=== PATIENT | male | born 2000 ===

== ENCOUNTER 2025-04-24 07:23 | Outpatient (CLI) | payer OTHER, SELFPAY ==
--- NOTE | ~2025-04-24 | US_ITS ---
US abdomen limited INDICATION: Hepatic steatosis PROCEDURE: Realtime right upper abdominal ultrasound. COMPARISON: No prior studies for comparison. FINDINGS: The pancreas is normal without focal mass or pancreatic ductal dilation. Liver echotexture is diffusely increased, consistent with fatty infiltration. There is normal directional flow in the portal vein. The gallbladder is normal without stones, gallbladder wall thickening or pericholecystic fluid. Comm on bile duct measures 3 mm. No sonographic Palomino's sign. IMPRESSION: 1: Fatty infiltration of the liver. Reviewed, dictated and finalized at location A.
--- OUTSIDE RECORDS SUMMARY | 2025-04-24 07:28 | XMS_ITS | Encounter Summary ---
Author Organization [facility] Address [address] [place] [address] Phone Care Team Providers Care Core Composer Machine Tender Name Role Phone Arnav Long MD Primary Care Provider [phone] Encounter Details Date Type Department Care Team (Late st Contact Info) Description 03/28/2021 Orders Only [facility] GA[facility] Scanning, Provider Social History Tobacco Use Types Packs/Day Years Used Date Smoking Tobacco: Never Sex and Gender Information Value Date Recorded Sex Assigned at Not on file 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 Gender Identity Not on file Sexual Orientation Not on file documented as of this encounter Plan of Treatment Not on file documented as of this encounter Procedures Procedure Name Priority Date/Time Associated Diagnosis Comments SCAN - LABS 03/28/2021 documented in this encounter Results * SCAN - LABS (03/28/2021) us Provider Scanning Final Result documented in this encounter Visit Diagnoses Not on filedocumented in this encounter Care Teams Core Composer Machine Tender Relationship Specialty Start Date End Date Arnav Long MD PCP - General Family Medicine 08/23/18 documented as of this encounter
--- OUTSIDE RECORDS SUMMARY | 2025-04-24 07:28 | XMS_ITS | Clinical Summary ---
Author Organization 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 Gender Identity Not on file Sexual Orientation Not on file Plan of Treatment Health Maintenance Due Date Last Done Comments Hepatitis C Virus (HCV) Screening 1998 Human Papillomavirus (HPV) Immunization (1 - Male 3-dose series) 2013 SARS-COV-2 Immunization ( season) 2024 Influenza Immunization (#1) 2025 Respiratory Syncytial Virus (RSV) Immunization (Adult) (1 - 1-dose 75+ series) 2073 Pneumococcal Immunization Combined Aged Out 05/17/2000 No longer eligible based on patient's age to complete this topic DTaP/Tdap/Td Immunization Discontinued 2009, 04/29/2003, 11/03/1999, Additional history exists TdaP Immunization Completed 04/07/2010 Meningococcal Immunization (ACWY) Completed 04/11/2015, 08/24/2014 Hepatitis B Immunization Completed 020, 07/21/2020, 01/27/1999, Additional history exists Rotavirus Immunization Aged Out No lo nger eligible based on patient's age to complete this topic Insurance [employer] on file
--- OUTSIDE RECORDS SUMMARY | 2025-04-24 07:28 | XMS_ITS | Encounter Summary ---
Author Organization [facility] Address [address] [place] [address] Care Team Providers Care Day Care Center Director Name Role Phone Bonnie Wade MD Primary Care Provider [phone] Reason for Visit * Reason Onset Date Comments Results 02/04/2016 Encounter Details Date Type Department Care Team (Late st Contact Info) Description 02/04/2016 Telephone [facility] Pediatrics - [address] [address] Greyson Foreman MD [address] [place] [address] [phone] Results Social History Tobacco Use Types Packs/Day Years Used Date Smoking Tobacco: Never Assessed Sex and Gender Information Value Date Recorded Sex Assigned at Not on file Legal Sex Male 10:38 AM CDT Gender Identity Not on file Sexual Orientation Not on file documented as of this encounter Functional Status * Is person deaf or have serious hearing difficulty? Answer Date of Assessment Author No 01/19/2016 3:29 PM CDT Waylon Esteves RN * Is person blind or have serious difficulty seeing? Answer Date of Assessment Author No 01/19/2016 3:29 PM KEMART Waylon Esteves RN * Does person have serious difficulty walking/climbing stairs? Answer Date of Assessment Author No 01/19/2016 3:29 PM KEMART Waylon Esteves RN * Does person have difficulty dressing/bathing? Answer Date of Assessment Author No 01/19/2016 3:29 PM KEMART Waylon Esteves RN * Does person have difficulty doing errands alone? Answer Date of Assessment Author No 01/19/2016 3:29 PM KEMART Waylon Esteves RN documented as of this encounter Mental Status * Does person have difficulty concentrating/remembering/making decisions? Answer Entry Date Author No 01/19/2016 3:29 PM CDT Waylon Esteves RN documented in this encounter Miscellaneous Notes * Telephone Encounter - Kathie Wiley - 02/12/2016 11:57 AM CDT Spoke with mom she is in agreement to FU visit 02/24/2016 @ 3:00pm. * Telephone Encounter - Greyson Foreman MD - 02/11/2016 4:28 PM CDT Though I do not have afternoon clinics, if there is an available opening I could see the patient on02/23 at 3:00PM. Keep us informed of progress. * Telephone Encounter - Kell Carrasquillo RN - 02/06/2016 3:56 PM CDT Spoke to both parents via speaker phone informing them of bx results. Reviewed fatty liver with parents in detail. Family would like to see Dr. Foreman in clinic after 1500 any day of the week. When do you want to see him? * Telephone Encounter - Greyson Foreman MD - 02/06/2016 3:36 PM CDT We have tried calling several times but have not been able to speak with the family. Please let them know that biopsy shows fatty liver disease. Diet and exercise can help. If possible please setup a telephone call / clinic visit where this can be discussed in greater length. Keep us informed of progress. * Telephone Encounter - Kathie Wiley - 02/05/2016 10:40 AM CDT Mom returning call. She is available around 4:30 pm after she is off work [phone]. Please leave a detailed message if possible on mom's voicemail. Dad is available around 2:45 pm [phone]. * Telephone Encounter - Phoebe Hooks - 02/05/2016 10:19 AM CDT Mom returning call. * Telephone Encounter - Greyson Foreman MD - 02/05/2016 10:02 AM CDT Called again. No answer. Left message. * Telephone Encounter - Kathie Wiley - 02/05/2016 9:03 AM CDT Dad returning missed call regarding Liver Bx results. Please call mom's cell phone [phone]. * Telephone Encounter - Greyson Foreman MD - 02/04/2016 11:36 AM CDT Called. No answer. No way to leave a message. * Telephone Encounter - Kathie Wiley - 02/04/2016 8:21 AM CDT Dad is requesting Liver Bx results. Please call mom with results. documented in this encounter Plan of Treatment Not on file documented as of this encounter Visit Diagnoses Not on filedocumented in this encounter Care Teams Day Care Center Director Relationship Specialty Start Date End Date Bonnie Wade MD [address] [place] [address] PCP - General Pediatrics 11/28/15 12/25/24 documented as of this encounter
--- OUTSIDE RECORDS SUMMARY | 2025-04-24 07:28 | XMS_ITS | Clinical Summary ---
Author Organization [facility] Address [address] [place] [address] Care Team Providers Care Assistant Women'S Tennis Coach Name Role Phone Unavailable Primary Care Provider Unavailabl e Source Comments [facility],non-owned Affiliates and Associated Physician Practices is amultiple site organization consisting of ambulatory clinics and hospital sitesin [place], [place], [place] and [place]. This disclosure is being madepursuant to the Care Everywhere program and may not contain all information available regarding this patient. Last updated 18.[facility] Allergies No known active allergies Medications * Be aware that medications may not be up to date on this document. Alwaysverify current medications with the patient. amphetamine-dex troamphetamine XR 24hr (ADDERALL XR) 20 MG capsule Take 40 mg by mouth every morning Active risperiDONE (RISPERDAL) 0.5 MG tablet Take 0.5 mg by mouth once daily Active Active Problems Problem Noted Date Diagnosed Date Elevated liver enzymes 01/19/2016 Social History Tobacco Use Types Packs/Day Years Used Date Smoking Tobacco: Never Alcohol Use Standard Drinks/Week Comments Not Asked 0 (1 standard drink = 0.6 oz pur e alcohol) Sex and Gender Information Value Date Recorded Sex Assigned at Not on file Legal Sex Male 10:38 AM CDT Gender Identity Not on file Sexual Orientation Not on file Last Filed Vital Signs Vital Sign Reading Time Taken Comments Blood Pressure 116/72 02/24/2016 3:10 PM CDT Pulse 93 01/19/2016 4:30 PM CDT Temperature 37 C (98.6 F) 01/19/2016 1:45 PM CDT Respiratory Rate 10 01/19/2016 4:30 PM CDT Oxygen Saturation 96% 01/19/2016 4:30 PM CDT Inhaled Oxygen Concentration - - Weight 71.5 kg (157 lb 10.1 oz) 02/24/2016 3:10 PM CDT Height 165.7 cm (5' 5.24) 02/24/2016 3:10 PM CD T Body Mass Index 26.04 02/24/2016 3:10 PM CDT Plan of Treatment Health Maintenance Due Date Last Done Comments HIV SCREENING 2013 HPV VACCINE (1 - Male 3-dose series) 2013 DTAP/TDAP/TD VACCINES (1 - Tdap) 2017 HEPATITIS B VACCINE (1 of 3 - 19+ 3-dose series) 2017 COVID-19 VACCINE (1 - 2023-2 5 season) 2024 DEPRESSION SCREENING 09/12/2024 INFLUENZA VACCINE (#1) 2025 ZOSTER VACCINE (1 of 2) 2048 HEPATITIS C SCREENING Completed 01/09/2016 HIB VACCINE Aged Out No longer eligi ble based on patient's age to complete this topic MENINGOCOCCAL (Group B) VACC INE SHARED DECISION-MAKING Aged Out No longer eligibl e based on patient's age to complete this topic MENINGOCOCCAL GROUPS A/C/Y/W VACCINE Aged Out No longer eligible b ased on patient's age to complete this topic PNEUMOCOCCAL VACCINE Aged Out No long er eligible based on patient's age to complete this topic Procedures Procedure Name Priority Date/Time Associated Diagnosis Comments HEPATITIS SCREEN ACUTE Routine 01/09/2016 9:40 AM CDT Liver disorder from Last 3 Months or Most Recently Relevant to Health Maintenance Results * HEPATITIS SCREEN ACUTE (01/09/2016 9:40 AM CDT) HAV Antibody IgM Non Reactive Non Reactive 01/09/2016 11:26 AM T [facility] HBsAg Non Reactive Non Reactive 01/09/2016 11:26 AM T [facility] HBc Antibody IgM Non Reactive Non Reactive 01/09/2016 11:26 AM [facility] HCV Antibody Screen Non Reactive Non Reactive 01/09/2016 11:26 AM [facility] HCV S/C Ratio 0.12 0.00 - 0.79 01/09/2016 11:26 AM [facility] Comment: Drlsiy-cr-xotzsj ratio (S/CO) <0.80: Non Reactive Blood BLOOD SPECIMEN / Unknown Lab Venipuncture / Unknown 01/09/2016 9:40 AM CDT 01/09/2016 10:34 AM CDT Narrative [facility] - 01/09/2016 11:26 AM CDT Non Reactive - Antibodies to Hepatitis C virus (HCV) were not detected, result does not exclude early acute HCV infection. us Greyson Foreman MD LAB - CHEMISTRY ORDERABLES Final Result [facility] [address] [place] [address] from Last 3 Months or Most Recently Relevant to Health Maintenance Insurance
--- OUTSIDE RECORDS SUMMARY | 2025-04-24 07:28 | XMS_ITS | Clinical Summary ---
Author Organization [facility] Address [address] [place] [address] Care Team Providers Care Community Service Coordinator Name Role Phone Arnav Long MD Primary Care Provider [phone] Allergies No known active allergies Medications VYVANSE 40 mg capsule TK 1 C PO QAM 0 11/17/2018 Active acetaminophen (TYLENOL) 325 mg tablet Take 1 tablet (325 mg total) by mouth as needed for pain Active ascorbic acid (VITAMIN C ORAL) Take by mouth Unsure med dosage qd Active Active Problems No known active problems Encounters Date Type Department Care Team Description 02/04/2025 Results Follow-Up [facility] [address] [place] [address] [address] [place] [address] [place] [phone] Chica Mcnulty MD Comprehensive metabolic panel, CBC with auto differential, Bilirubin, direct, Additional followed-up results: 3 02/04/2025 Results Follow-Up [facility] [address] [place] [address] 12th [place] [address] [place] [id number] Chica Mcnulty MD Liver Elastography w/o Imaging W/I&R -[facility] (All Locations) 01/31/2025 11:15 AM CDT Lab [facility] [address] [place] [phone] Hepatic steatosis 01/31/2025 9:30 AM CDT Procedure visit [facility] [address] 12th [place] [address] [place] [address] Hepatic steatosis 01/31/2025 9:00 AM CDT Office Visit [facility] [address] [facility] 12th [place] [address] [place] [address] Chica Mcnulty MD Hepatic steatosis (Primary Dx) from Last 3 Months Surgical History Surgery Date Site/Laterality Comments LIVER BIOPSY 02/14/16 - findings of hepatic steatosis Medical History Medical History Date Comments Autism Family History Medical History Relation Name Comments Cancer Maternal Grandfather Heart attack Maternal Grandfather Diabetes Maternal Grandmother Gestational diabetes Mother Relation Name Status Comments Maternal Grandfather Maternal Grandmother Mother Social History Tobacco Use Types Packs/Day Years Used Date Smoking Tobacco: Never Tobacco Cessation:Counseling Given: Not Answered Sex and Gender Information Value Date Recorded Sex Assigned at Not on file 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 Gender Identity Not on file Sexual Orientation Not on file Obstetrics History Last Filed Vital Signs Vital Sign Reading Time Taken Comments Blood Pressure 135/82 01/31/2025 9:13 AM CDT Pulse 96 01/31/2025 9:13 AM CDT Temperature 36.7 C (98.1 F) 01/31/2025 9:13 AM CDT Respiratory Rate - - Oxygen Saturation 96% 12/13/2022 8:31 AM CDT Inhaled Oxygen Concentration - - Weight 82 kg (180 lb 12.8 oz) 01/31/2025 9:13 AM CDT Height 170.2 cm (5' 7) 01/31/2025 9:13 AM CDT Body Mass Index 28.32 01/31/2025 9:13 AM CDT Plan of Treatment Health Maintenance Due Date Last Done Comments Depression Screening 1998 Hepatitis C Screening 1998 HPV Vaccines (1 - Male 3-dos e series) 2013 Regular Well Visit/Exam 18-64 2016 DTaP/Tdap/Td Vaccine (7 - Td or Tdap) 04/07/2020 04/07/2010, 04/29/2003, 11/03/1999, Additional history exists Influenza Vaccine (#1) 2025 Hepatitis B Screening Completed 01/27/1999 , 1998, 1998 Pneumococcal vaccine <65 Completed 05/17/2000 Varicella Vaccines Completed 03/27/2007, 08/03/1999 Procedures Procedure Name Priority Date/Time Associated Diagnosis Comments EGFR Routine 01/31/2025 10:20 AM CDT Hepatic steatosis DIFFERENTIAL AUTO Routine 01/31/2025 10: 20 AM CDT Hepatic steatosis HEMOGLOBIN A1C Routine 01/31/2025 10:20 AM CDT Hepatic steatosis BILIRUBIN, DIRECT Routine 01/31/2025 10: 20 AM CDT Hepatic steatosis CBC WITH AUTO DIFFERENTIAL Routine 01/31/2025 10:20 AM CDT Hepatic steatosis COMPREHENSIVE METABOLIC PANEL Routine 01/31/2025 10:20 AM CDT Hepatic steatosis LIVER ELASTOGRAPHY W/O IMAGING W/I&R Routine 01/31/2025 9:15 AM CDT Hepatic steatosis from Last 3 Months Results * eGFR (01/31/2025 10:20 AM CDT) eGFR >90 >=60 mL/min/1. 73 m2 Comment: Interpretive Data Reference Interval Normal >/= 90 mL/min/1.73m2 Mildly decreased* 60 - 89 mL/min/1.73m2 Mildly to moderately decreased 45 - 59 mL/min/1.73m2 Moderately to severely decreased 30 - 44 mL/min/1.73m2 Severely decreased 15 - 29 mL/min/1.73m2 Kidney Failure < 15 mL/min/1.73m2 *Relative to young adult level Estimated glomerular filtration rate is determined by the 2020 CKD-EPI equation recommended by the National Kidney Foundation (A Unifying Approach to GFR Estimation: Recommendations of the NKF-ASK Task Force on Reassessing the Inclusion of Race in Diagnosing Kidney Disease, JASN 2020). The CKD-EPI equation should not be used for patients with unstable renal function and has not been validated in children and those over 70. Current interpretive data was last reviewed 2021. Blood 01/31/2025 10:2 0 AM CDT 01/31/2025 10:47 AM CDT Chica Mcnulty MD LAB BLOOD ORDERABLES Final Result [facility] [place] [address] * Differential, auto (01/31/2025 10:20 AM CDT) Neutrophil abs 3.99 1.50 - 6.50 K/cumm Imm gran abs 0.02 0.00 - 0.10 K/cumm [facility] Lymphocyte abs 2.65 0.80 - 3.30 K/cumm [facility] Monocyte abs 0.67 0.20 - 0.80 K/cumm [facility] Eosinophil abs 0.06 0.00 - 0.50 K/cumm [facility] Basophil abs 0.06 0.00 - 0.10 K/cumm [facility] Neutrophil pct 53.5 % [facility] Comment: Interpretive Data Percent cell count reference ranges are not reported, since discordance with absolute values may lead to misinterpretation of CBC data. Current Interpretive Data was last revised on 2017. Imm gran pct 0.3 % [facility] Comment: Interpretive Data Percent cell count reference ranges are not reported, since discordance with absolute values may lead to misinterpretation of CBC data. Current Interpretive Data was last revised on 2017. Lymphocyte pct 35.6 % [facility] Comment: Interpretive Data Percent cell count reference ranges are not reported, since discordance with absolute values may lead to misinterpretation of CBC data. Current Interpretive Data was last revised on 2017. Monocyte pct 9.0 % [facility] Comment: Interpretive Data Percent cell count reference ranges are not reported, since discordance with absolute values may lead to misinterpretation of CBC data. Current Interpretive Data was last revised on 2017. Eosinophil pct 0.8 % [facility] Comment: Interpretive Data Percent cell count reference ranges are not reported, since discordance with absolute values may lead to misinterpretation of CBC data. Current Interpretive Data was last revised on 2017. Basophil pct 0.8 % [facility] Comment: Interpretive Data Percent cell count reference ranges are not reported, since discordance with absolute values may lead to misinterpretation of CBC data. Current Interpretive Data was last revised on 2017. Blood 01/31/2025 10:2 0 AM CDT 01/31/2025 10:47 AM CDT Chica Mcnulty MD LAB BLOOD ORDERABLES Final Result [facility] [place] [address] * CBC with auto differential (01/31/2025 10:20 AM CDT) WBC 7.45 3.80 - 9.90 K/cumm Hgb 14.1 13.0 - 17.5 g/dL [facility] Hct 42.8 38.9 - 50.3 % [facility] Plt 343 150 - 400 K/cumm [facility] MPV 10.2 9.1 - 12.3 fL [facility] RBC 5.00 4.30 - 5.80 M/cumm [facility] MCV 85.6 81.3 - 96.4 fL [facility] MCH 28.2 27.1 - 33.3 pg [facility] MCHC 32.9 32.3 - 35.7 g/dL [facility] RDW CV 12.0 11.1 - 14.9 % [facility] RDW SD 37.2 35.7 - 48.1 fL [facility] NRBC abs 0.00 0.00 - 0.01 K/cumm [facility] Blood 01/31/2025 10:2 0 AM CDT 01/31/2025 10:47 AM CDT Chica Mcnulty MD LAB BLOOD ORDERABLES Final Result [facility] [place] [address] * (ABNORMAL) Hemoglobin A1c (01/31/2025 10:20 AM CDT) [facility] Hgb A1C 5.9(H) 4.0 - 5.6 % Estimated Average Glucose 123 mg/dL [facility] Comment: The ADA recommends reporting an estimated Average Glucose (eAG) with all Hemoglobin A1c results using the equation derived from a study of 507 normal and diabetic adults. Minority populations were underrepresented and children were not included. (Diabetes Care 2020; 43(S1): S66-S76). The eAG is not equivalent to a fasting glucose. Blood 01/31/2025 10:2 0 AM CDT 01/31/2025 10:47 AM CDT Chica Mcnulty MD LAB BLOOD ORDERABLES Final Result Performing Organization Address City/[facility]/ZIP Co de Phone Number [facility] [place] [address] * Bilirubin, direct (01/31/2025 10:20 AM CDT) [facility] Bilirubin, direct <0.2 0.1 - 0.3 mg/dL Blood 01/31/2025 10:2 0 AM CDT 01/31/2025 10:47 AM CDT Chica Mcnulty MD LAB BLOOD ORDERABLES Final Result [facility] [place] [address] * (ABNORMAL) Comprehensive metabolic panel (01/31/2025 10:20 AM CDT) [facility] Sodium 140 135 - 145 mmol/L Potassium, pl 4.2 3.3 - 4.9 mmol/L [facility] Chloride 105 97 - 110 mmol/L [facility] CO2 28 22 - 32 mmol/L [facility] Anion gap 7 2 - 15 mmol/L [facility] BUN 10 6 - 25 mg/dL [facility] Creatinine 0.83 0.80 - 1.30 mg/dL [facility] Glucose 92 70 - 199 mg/dL [facility] Comment: Interpretive Data Fasting glucose >/= 126 mg/dl is diagnostic for diabetes. Fasting is defined as no caloric intake for at least 8 hours. Fasting glucose between 100 mg/dl to 125 mg/dl is diagnostic of prediabetes. In a patient with classic symptoms of hyperglycemia or hyperglycemic crisis, a random glucose >/= 200 mg/dl is diagnostic for diabetes. In the absence of unequivocal hyperglycemia, results should be confirmed by repeat testing. The classification and Diagnosis of Diabetes Diabetes Care 2021; 46: S19-S40. Current interpretive data was last revised 2022. Calcium 9.6 8.5 - 10.3 mg/dL [facility] Bilirubin, total 0.2 0.1 - 1.2 mg/dL [facility] Protein, pl 7.5 6.5 - 8.5 g/dL [facility] Albumin 4.6 3.5 - 5.0 g/dL [facility] Alk phos 65 40 - 130 Units/L [facility] ALT 110(H) 7 - 55 Units/L [facility] AST 40 10 - 50 Units/L [facility] Blood 01/31/2025 10:2 0 AM CDT 01/31/2025 10:47 AM CDT Chica Mcnulty MD LAB BLOOD ORDERABLES Final Result [facility] [place] [address] * Liver Elastography w/o Imaging W/I&R -[facility] (All Locations) (01/31/2025 9:15 AMCDT) Anatomical Region Laterality Modality Other us Chica Mcnulty MD GI PROCEDURE ORDERAB LES Edited Result - Final from Last 3 Months Insurance [facility] [employer] OOS Member Subscriber Plan / Payer (Ef fective 2022-Present) Name:Tonio Daniel Relation to Subscriber:Child Name:Aysha Daniel Date of :1974 (Home) (Work) Address: [address] [place] [id number] Payer ID:[id number] (NAIC) Type:[facility] Address: [phone] [employer] [facility] Care Teams Community Service Coordinator Relationship Specialty Start Date End Date Arnav Long MD PCP - General Family Medicine 08/23/18
== END 2025-04-24 07:24 | disposition home or self-care (01) ==
PROVIDERS: PCP Family Medicine; Visit Provider Internal Medicine Gastroenterology
DX: K76.0 Fatty (change of) liver, not elsewhere classified (principal)
CPT/HCPCS: 76705